=== PATIENT | female | born 1965 | race Hispanic/Latino ===

== ENCOUNTER 2019-07-01 14:32 | Emergency (ER) | payer BC ==
[~2019-07-01] VITALS: Ht 175.3 cm; Wt 74.4 kg
[~2019-07-01 14:32] MED LIST: CLONAZEPAM0.5 MG PO; ESTRACE0.5 MG PO; LISINOPRIL10 MG PO; SIMVASTATIN40 MG PO
--- OUTSIDE RECORDS SUMMARY | 2019-07-01 14:36 | XMS REPORT ---
Author Author [facility] Address Unknown Phone Unavailable Care Team Providers Care Public Safety Teacher Name Role Phone Unavailable Unavailable Payers Payer Name Policy Type Policy Number Effective Date Expiration Date Problems This patient has no known problems. Allergies, Adverse Reactions, Alerts Allergy Name Allergy Type Status Severity Reaction(s) Onset Date Inactive Date Treating Clinician Comments metoclopramide HCl DA Active AR 2018-03-13 00:00:00 Cephalexin Monohydrate DA Active AR 2018-03-13 00:00:00 Medications This patient has no known medications. Encounters Start Date/Time End Date/Time Encounter Type Admission Type Attending Clinicians Care Facility Care Department Encounter ID 2019-02-09 10:22:00 2019-02-09 10:22:00 Emergency [facility] [id number]
[2019-07-01] MEDS ORDERED: SODIUM CHLORIDE 0.9% 1000ML 1,000 ML IV STA (15:03)
[2019-07-01] MEDS ORDERED: ONDANSETRON HCL INJ 2MG/ML 2ML 2 MG/ML VIAL IV STA (15:03)
[2019-07-01] MEDS ORDERED: KETOROLAC TROMETHAMINE 30 MG/ML VIAL IV STA (15:03)
[2019-07-01] MEDS ORDERED: TRIMETHOPRIM/SULFAMETHOXAZOLE 160-800 MG TAB PO ONE (15:15)
[2019-07-01 15:24] LABS: BILIRUBIN,URINE NEGATIVE (NEGATIVE); CLARITY,URINE SL CLOUDY (CLEAR); COLOR,URINE ORANGE (YELLOW); KETONES,URINE NEGATIVE (NEGATIVE); LEUKOCYTE ESTERASE ,URINE NEGATIVE (NEGATIVE); NITRITE,URINE POSITIVE (NEGATIVE); PROTEIN,URINE DIPSTICK 1+ (NEGATIVE); URINE UROBILINOGEN 1 mg/dL (0.2 - 1)
[2019-07-01 15:27] LABS: BASOPHILS % 0.3 % (0.0-1.0); EOSINOPHILS # (AUTO) 0.1 (0.0-0.4); EOSINOPHILS % 1.2 % (0.0-6.0); HEMATOCRIT 40.4 % (34.2-44.1); HEMOGLOBIN 13.1 g/dL (12.0-16.0); LYMPHOCYTES # (AUTO) 2.3 (1.0-3.2); LYMPHOCYTES % 24.5 % (18.0-39.1); MEAN CORPUSCULAR HEMOGLOBIN 27.2 pg (28-32); MEAN CORPUSCULAR HGB CONC 32.4 g/dL (31-35); MEAN CORPUSCULAR VOLUME 83.8 fL (81-99); MONOCYTES # (AUTO) 0.5 (0.2-0.8); MONOCYTES % 5.7 % (4.4-11.3); NEUTROPHILS # (AUTO) 6.4 (2.1-6.9); NEUTROPHILS % 68.2 % (38.7-80.0); PLATELET COUNT 256 x10e3/uL (140-360); RED BLOOD COUNT 4.82 x10e6/uL (3.6-5.1)
[2019-07-01] MEDS ORDERED: PHENAZOPYRIDINE HCL 100 MG TAB PO ONE (15:30)
[2019-07-01 15:48] LABS: ALANINE AMINOTRANSFERASE 24 IU/L (0-55); ALBUMIN 3.8 g/dL (3.5-5.0); ALBUMIN/GLOBULIN RATIO 1.3 (0.8-2.0); ALKALINE PHOSPHATASE 66 IU/L (40-150); ANION GAP 12.3 mmol/L (8-16); BLOOD UREA NITROGEN 17 mg/dL (7-26); BUN/CREATININE RATIO 18 (6-25); CALCIUM 9.1 mg/dL (8.4-10.2); CARBON DIOXIDE 24 mmol/L (22-29); CHLORIDE 106 mmol/L (98-107); CREATININE, SERUM 0.97 mg/dL (0.57-1.11); EST GLOMERULAR FILTRATION RATE > 60 ML/MIN (60-); GLUCOSE 96 mg/dL (74-118); POTASSIUM 4.3 mmol/L (3.5-5.1); SODIUM 138 mmol/L (136-145)
[2019-07-01 15:58] LABS: AMORPHOUS SEDIMENT,URINE MODERATE (FEW); BACTERIA,URINE MODERATE /HPF; EPITHELIAL CELLS,URINE MODERATE /LPF; HYALINE CASTS 0-1 (0-1)
[2019-07-01] MEDS ORDERED: CEFTRIAXONE SOD 1 GM/NS 50 ML 50 ML IV ONE (16:00)
[2019-07-01] MEDS ORDERED: FENTANYL CITRATE/PF 100MCG/2 ML INJ IV STA (16:06)
[2019-07-01] MEDS ORDERED: HYDROCODONE/APAP 10MG-325MG TAB PO ONE (16:15)
[2019-07-01] MEDS ORDERED: BACTRIM DS TAB1 EACH PO (17:03)
[2019-07-01] MEDS ORDERED: PYRIDIUM100 MG PO (17:03)
== END 2019-07-01 17:25 | disposition home or self-care (01) ==
LOC: ER 14:32
DX: R30.0 Dysuria (principal); R10.30 Lower abdominal pain, unspecified; N39.0 Urinary tract infection, site not specified
CPT/HCPCS: 36415; 80053; 81001; 85025; 87086; 99284; J1885; J2405; J3010; J7030